=== PATIENT | female | born 1995 | race African-American/Black ===

== ENCOUNTER 2016-06-23 04:24 | Inpatient (IN) | payer OTHER ==
[2016-06-23 04:54] LABS: Urine Bilirubin Negative (Negative); Urine Glucose Negative (Negative); Urine Nitrite Negative (Negative)
[2016-06-23 05:03] LABS: Benzodiazepine Urine Screen None Detected (None Detect)
[2016-06-23 05:03] LABS: Hematocrit 34 % (35-47); Hemoglobin 11.1 g/dl (12.0-16.0); Mean Corpuscular HGB Conc 33 g/dl (31-36); Mean Corpuscular Hemoglobin 27 pg (27-31); Mean Corpuscular Volume 81 fL (80-97); Mean Platelet Volume 8 um3 (7.4-10.4); Red Blood Count 4.14 10^6/ul (4.0-5.4); Red Cell Distribution Width 14 % (10.5-15); White Blood Count 6.5 10^3/ul (3.5-10.8)
[2016-06-23 05:17] LABS: ALT 7 U/L (7-52); AST 15 U/L (13-39); Albumin 3.8 g/dL (3.2-5.2); Alkaline Phosphatase 32 U/L (34-104); Anion Gap 6 mmol/L (2-11); BUN/Creatinine Ratio 9.4 (8-20); Blood Urea Nitrogen 9 mg/dL (6-24); CO2 Carbon Dioxide 25 mmol/L (22-32); Chloride 104 mmol/L (101-111); EGFR African American 93.5 (>60); EGFR Non-African American 72.7 (>60); Globulin 3.4 g/dL (2-4); Glucose 118 mg/dL (70-100); Potassium 3.6 mmol/L (3.5-5.0); Sodium 135 mmol/L (133-145); Total Protein 7.2 g/dL (6.4-8.9)
[2016-06-23 05:25] LABS: Acetaminophen < 15 mcg/mL; Alcohol < 10 mg/dL (<10); Salicylate < 2.50 mg/dL (<30)
[2016-06-23 05:43] LABS: TSH (Thyroid Stimulating Horm) 2.79 mcIU/mL (0.34-5.60)
--- NOTE | 2016-06-23 05:46 | ED ---
devyn Whitaker Timothy, scribed for Bjorn Blank MD on 06/23/16 at 0451 . Psychiatric Complaint - HPI Summary HPI Summary: Jasmina Guzman is a 21 yo female presenting to [facility] as a 941 for MHE due to self-harm. She states she has been self-harming for the past month. She has passive SI. Her MHx includes depression. - History Of Current Complaint Time Seen by Provider: 06/23/16 04:32 Hx Obtained From: Patient Onset/Duration: Gradual Onset, Lasting Weeks, Still Present Timing: Constant Severity Initially: Moderate Severity Currently: Moderate Character: Depressed Related History: Positive For: Prior Psychiatric Issues - depression Has Suicidal: Reports: Thoughts - passive PMH/Surg Hx/FS Hx/Imm Hx Psychiatric History: Reports: Hx Depression Infectious Disease History: Denies: Traveled Outside the [place] in Last 30 Days - Family History Known Family History: Positive: Hypertension Negative: Cardiac Disease, Diabetes - Social History Occupation: Student Lives: Alone Hx Substance Use: No Substance Use Type: Reports: None Hx Tobacco Use: No Smoking Status (MU): Never Smoked Tobacco Review of Systems Constitutional: Negative Eyes: Negative ENT: Negative Cardiovascular: Negative Respiratory: Negative Gastrointestinal: Negative Genitourinary: Negative Musculoskeletal: Negative Skin: Negative Neurological: Negative Positive: Depressed All Other Systems Reviewed And Are Negative: Yes Physical Exam Triage Information Reviewed: Yes Vital Signs On Initial Exam: Initial Vitals Temp Pulse Resp BP Pulse Ox 98.0 F 68 15 126/77 100 06/23/16 04:49 06/23/16 04:49 06/23/16 04:49 06/23/16 04:49 06/23/16 04:49 Vital Signs Reviewed: Yes Appearance: Positive: Well-Appearing - anxious Skin: Positive: Warm Head/Face: Positive: Normal Head/Face Inspection Eyes: Positive: FREDDY ENT: Positive: Hearing grossly normal Neck: Positive: Supple Respiratory/Lung Sounds: Positive: Clear to Auscultation, Breath Sounds Present Cardiovascular: Positive: RRR Abdomen Description: Positive: Nontender, Soft Bowel Sounds: Positive: Present Musculoskeletal: Positive: Strength/ROM Intact Neurological: Positive: Sensory/Motor Intact Diagnostics - Vital Signs Vital Signs Temp Pulse Resp BP Pulse Ox 06/23/16 04:49 98.0 F 68 15 126/77 100 - Laboratory Lab Results: Lab Results 06/23/16 06/23/16 06/23/16 Range/Units 04:41 04:41 04:54 WBC 6.5 (3.5-10.8) 10^3/ul RBC 4.14 (4.0-5.4) 10^6/ul Hgb 11.1 L (12.0-16.0) g/dl Hct 34 L (35-47) % MCV 81 (80-97) fL MCH 27 (27-31) pg MCHC 33 (31-36) g/dl RDW 14 (10.5-15) % Plt Count 258 (150-450) 10^3/ul MPV 8 (7.4-10.4) um3 Neut % (Auto) 43.6 (38-83) % Lymph % (Auto) 43.3 (25-47) % [place] % (Auto) 8.0 (1-9) % Eos % (Auto) 4.1 (0-6) % Baso % (Auto) 1.0 (0-2) % Absolute Neuts (auto) 2.8 (1.5-7.7) 10^3/ul Absolute Lymphs (auto) 2.8 (1.0-4.8) 10^3/ul Absolute Monos (auto) 0.5 (0-0.8) 10^3/ul Absolute Eos (auto) 0.3 (0-0.6) 10^3/ul Absolute Basos (auto) 0.1 (0-0.2) 10^3/ul Absolute Nucleated RBC 0.01 10^3/ul Nucleated RBC % 0.2 Sodium (133-145) mmol/L Potassium (3.5-5.0) mmol/L Chloride (101-111) mmol/L Carbon Dioxide (22-32) mmol/L Anion Gap (2-11) mmol/L BUN (6-24) mg/dL Creatinine (0.51-0.95) mg/dL Est GFR ( Amer) (>60) Est GFR (Non-Af Amer) (>60) BUN/Creatinine Ratio (8-20) Glucose (70-100) mg/dL Calcium (8.6-10.3) mg/dL Total Bilirubin (0.2-1.0) mg/dL AST (13-39) U/L ALT (7-52) U/L Alkaline Phosphatase (34-104) U/L Total Protein (6.4-8.9) g/dL Albumin (3.2-5.2) g/dL Globulin (2-4) g/dL Albumin/Globulin Ratio (1-3) TSH (0.34-5.60) mcIU/mL Beta HCG, Quant mIU/mL Urine Color Yellow Urine Appearance Clear Urine pH 5.0 (5-9) Ur Specific [place] 1.013 (1.010-1.030) Urine Protein Negative (Negative) Urine Ketones Trace H (Negative) Urine Blood Negative (Negative) Urine Nitrate Negative (Negative) Urine Bilirubin Negative (Negative) Urine Urobilinogen Negative (Negative) Ur Leukocyte Esterase Negative (Negative) Urine Glucose Negative (Negative) Salicylates (<30) mg/dL Urine Opiates Screen None detected (None Detect) Acetaminophen mcg/mL Ur Barbiturates Screen None detected (None Detect) Ur Phencyclidine Scrn None detected (None Detect) Ur Amphetamines Screen None detected (None Detect) U Benzodiazepines Scrn None detected (None Detect) Urine Cocaine Screen None detected (None Detect) U Cannabinoids Screen None detected (None Detect) Serum Alcohol (<10) mg/dL 06/23/16 Range/Units 04:54 WBC (3.5-10.8) 10^3/ul RBC (4.0-5.4) 10^6/ul Hgb (12.0-16.0) g/dl Hct (35-47) % MCV (80-97) fL MCH (27-31) pg MCHC (31-36) g/dl RDW (10.5-15) % Plt Count (150-450) 10^3/ul MPV (7.4-10.4) um3 Neut % (Auto) (38-83) % Lymph % (Auto) (25-47) % [place] % (Auto) (1-9) % Eos % (Auto) (0-6) % Baso % (Auto) (0-2) % Absolute Neuts (auto) (1.5-7.7) 10^3/ul Absolute Lymphs (auto) (1.0-4.8) 10^3/ul Absolute Monos (auto) (0-0.8) 10^3/ul Absolute Eos (auto) (0-0.6) 10^3/ul Absolute Basos (auto) (0-0.2) 10^3/ul Absolute Nucleated RBC 10^3/ul Nucleated RBC % Sodium 135 (133-145) mmol/L Potassium 3.6 (3.5-5.0) mmol/L Chloride 104 (101-111) mmol/L Carbon Dioxide 25 (22-32) mmol/L Anion Gap 6 (2-11) mmol/L BUN 9 (6-24) mg/dL Creatinine 0.96 H (0.51-0.95) mg/dL Est GFR ( Amer) 93.5 (>60) Est GFR (Non-Af Amer) 72.7 (>60) BUN/Creatinine Ratio 9.4 (8-20) Glucose 118 H (70-100) mg/dL Calcium 9.0 (8.6-10.3) mg/dL Total Bilirubin 0.20 (0.2-1.0) mg/dL AST 15 (13-39) U/L ALT 7 (7-52) U/L Alkaline Phosphatase 32 L (34-104) U/L Total Protein 7.2 (6.4-8.9) g/dL Albumin 3.8 (3.2-5.2) g/dL Globulin 3.4 (2-4) g/dL Albumin/Globulin Ratio 1.1 (1-3) TSH 2.79 (0.34-5.60) mcIU/mL Beta HCG, Quant < 0.60 mIU/mL Urine Color Urine Appearance Urine pH (5-9) Ur Specific [place] (1.010-1.030) Urine Protein (Negative) Urine Ketones (Negative) Urine Blood (Negative) Urine Nitrate (Negative) Urine Bilirubin (Negative) Urine Urobilinogen (Negative) Ur Leukocyte Esterase (Negative) Urine Glucose (Negative) Salicylates < 2.50 (<30) mg/dL Urine Opiates Screen (None Detect) Acetaminophen < 15 mcg/mL Ur Barbiturates Screen (None Detect) Ur Phencyclidine Scrn (None Detect) Ur Amphetamines Screen (None Detect) U Benzodiazepines Scrn (None Detect) Urine Cocaine Screen (None Detect) U Cannabinoids Screen (None Detect) Serum Alcohol < 10 (<10) mg/dL Result Diagrams: 06/23/16 04:54 04/14/17 04:54 Lab Statement: Any lab studies that have been ordered have been reviewed, and results considered in the medical decision making process. Course/Dx - Course Assessment/Plan: Jasmina Guzman is a 21 yo female [facility] M[facility] due to self-harm. She is medically clear for MHUE at 0520. After completion of MHUE, Pt will be admitted to [facility] for further observation, evlauation, and treatment. - Differential Dx/Clinical Impression Provider Diagnosis: Self-harm, Passive suicidal ideations - Physician Notifications Instructed by Provider To: Admit As Inpatient Discharge - Discharge Plan Condition: Stable Disposition: ADMITTED TO [facility] Discharge Disposition Comment: admission for further observation, evaluation, and treatment The documentation as recorded by the devyn bowman Timothy accurately reflects the service I personally performed and the decisions made by me, Bjorn Blank MD.
[2016-06-23] MEDS ORDERED: Al Hydrox/Mg Hydrox/Simet LIQ* 30 ML UDC PO PRN (16:17)
[2016-06-23] MEDS ORDERED: hydrOXYzine HCL TAB* 50 MG PO PRN (16:18)
[2016-06-23] MEDS: Citalopram TAB* 20 MG PO SCH (18:12)
[2016-06-23] MEDS: Acetaminophen TAB* 325 MG PO PRN (18:52)
[2016-06-23] MEDS: SUMAtriptan TAB* 50 MG PO ONE ×2 (21:52→22:08)
--- NOTE | 2016-06-23 22:34 | HP ---
PSYCHIATRIC HISTORY AND PHYSICAL: DATE OF ADMISSION: 06/23/16 JUSTIFICATION FOR ADMISSION: The patient is in need of 24-hour supervision and treatment secondary to suicidal ideations endorsed within 72 hours of admission date. CHIEF COMPLAINT: "I am just disappointed, nothing is going right in my life." HISTORY OF PRESENT ILLNESS: The patient is a 21-year-old single - Ivorian female of [place] descent who is a college senior at [employer] who was brought in by the police after making suicidal statements to her boyfriend over Skype. The patient is set to graduate in July and has been trying for over a year to establish either an management internship as an actor or get into a Master's of T[employer] arts program in the field of acting. She has sent out several resumes and applications only to receive rejection letters time after time. She is disappointed in herself and feels like perhaps she chose the wrong program because she has had a dream of being an actress her entire life. The patient indicates that her family is not necessarily supportive. They are [place] immigrants living in [place], and she feels discouraged by their lack of support. She did start seeing a psychotherapist named Mimi at the [facility] at [place] over a month ago and she was set to have an intake with a psychiatrist for today but had been brought to the emergency room instead. I ask about symptoms and she does endorse difficulty falling asleep, anhedonia, guilt, lack of energy, poor concentration, lack of appetite, psychomotor retardation and thoughts of suicide. Apparently, the patient had superficially scratched herself on the left wrist but also had thoughts of overdosing on ibuprofen. As a safety plan, she states that she handed over a knife to a friend of hers and got rid of a large amount of over- the-counter ibuprofen that she typically uses for menstrual pain. Despite this, she continued to experience suicidal ideations which she expressed to her boyfriend , a man named Shen. Shen was reached in [place], [place], for collateral information and he corroborated the patient's story and felt that she would benefit from inpatient treatment. PAST PSYCHIATRIC HISTORY: The patient had a suicide attempt approximately 5 years ago when she overdosed on some allergy medications. She immediately told her family and was set down by her father and told that [place]ames[place] people do not chose suicide. She never received any treatment at that time. Approximately a month ago, she began seeing a therapist at [place] named Mimi Ribera, but she has not seen a psychiatrist. She has never been on psychiatric medication and has never received any psychiatric medications or hospitalizations. The patient denies any history of abuse or neglect growing up, but states that her family was emotionally unsupportive, rigid, and traditionalistic. She denies any significant history of head trauma. SUBSTANCE ABUSE HISTORY: She does drink socially but never to excess. She denies illicit substance abuse or use of tobacco product. MEDICAL HISTORY: Significant for migraine headaches. FAMILY HISTORY: Noncontributory. SOCIAL HISTORY: The patient was born in [place], [place] and then moved to [place], [place] when she was 1 years old. She is the second of 5 children and her parents are still an intact family residing in [place]. The patient graduated high school as an excellent student and came to [place] where she studies theater. She would like to get a Master's in fine arts or perhaps an management internship acting but has had difficulty being accepted into an appropriate program. 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 She is senior set to graduate in July. She is currently in a relationship with her boyfriend; however, he lives in [place] and so she is not currently sexually active. She denies any history of sexually transmitted diseases. She denies any history of service. She denies any history of legal problems. The patient self identifies as Latter-Day and feels that her luisa is a deterrent to completed suicide. REVIEW OF SYSTEMS: She denies double vision, although she is endorsing current headache. She denies sore throat, cough, chest pain, difficulty breathing, abdominal pain, nausea, vomiting, diarrhea or constipation. She denies difficulty ambulating, rashes, enlarged lymph nodes or fevers. She does feel that she has gained an unspecified amount of weight recently despite her lack of appetite. PHYSICAL EXAMINATION VITAL SIGNS: Blood pressure 126/77, heart rate 68, temperature 98.0 degrees Fahrenheit, respiratory rate 15 breaths per minute, oxygen saturation is 100% on room air. HEENT: Head is normocephalic, atraumatic. NECK: Supple. CHEST: Clear to auscultation bilaterally. ABDOMEN: Soft and nontender. MUSCULOSKELETAL: Full range of motion in all 4 extremities. NEUROLOGIC: She is grossly intact with no focal deficits. SKIN: Warm and dry. LABORATORY DATA: The patient reveals mild anemia with hemoglobin of 11.1 and hematocrit of 34. Creatinine is somewhat elevated at 0.96. Glucose is 118 which is high. Alk phos is low at 32. Urinalysis is within normal limits. Her urine drug screen is negative for all substances tested and her alcohol level is negative. MENTAL STATUS EXAM: The patient is an -Ivorian female who is clean, well groomed. She is wearing spectacles and what would appear to be a wig. She is calm, cooperative, although she shows some psychomotor retardation. Speech is slow and deliberate with good fluency. Mood is depressed with constricted affect. Thought process is linear and goal directed. Thought content is significant for her disappointment at not getting into an acting program. She is endorsing suicidal ideations with thoughts to either cut herself or overdose on medications. She denies homicidality. She denies auditory or visual hallucinations. Insight and judgment appears to be fair given her willingness to cooperate with treatment. Cognitively, she is awake and alert with what would appear to be an average intellect. DIAGNOSES: Prosper I: Major depressive disorder, single episode, severe without psychotic features. Prosper II: Deferred. Prosper III: Migraine headaches, mild anemia. Prosper IV: Moderate academic and occupational stressors. Prosper V: At this time is 35. IMPRESSION: The patient is a 21-year-old single -[place]ian female of [place] descent who is a senior at [employer] who was brought in by the police after endorsing suicidal ideations to her boyfriend over Skype. She meets criteria for major depressive illness and she is expressing an interest in antidepressant therapy. We do discuss the benefits and limitations of antidepressant treatment and she accepts the trial of citalopram. PLAN: The patient is admitted to the adult behavioral health unit where she is placed on q. 30 minute checks for her own safety. We will start a trial of citalopram 20 mg p.o. daily and she is encouraged to avail herself of all milieu activities including group and individual psychotherapies. Her followup would likely be at the [facility] on the grounds of [employer]. [id number]/[facility] #: [id number] [facility]ITAL[facility]
[2016-06-24] MEDS: Vitamin THERAPEUTIC TAB PO SCH (08:55)
[2016-06-24] MEDS: Citalopram TAB* 20 MG PO SCH (08:55)
[2016-06-24] MEDS ORDERED: Cetirizine* 10 MG TAB PO PRN (14:24)
--- NOTE | 2016-06-24 14:24 | PN ---
Subjective - Subjective Service Type: 37013 Hosp care 15 min low complexity Subjective: At this time, I visited with client who reports that she feels much better today as she was having a migraine headache yesterday. Reports that receipt of medication for same was effective in treating symptoms. She is reporting improved sleep and mood. States that her appetite was not as good today as it was yesterday. She also reports that her mother was considering driving up to see her (from [place]). She is also reporting that she is having some upper respiratory/seasonal allergy symptoms of stuffy/runny nose. She is currently denying suicidal ideation and is future oriented. Case discussed with Dr. Marie. Objective - Appearance Dysmorphic Features: No Hygiene: Normal Grooming: Well Kept - Behavior Psychomotor Activities: Normal Exhibits Abnormal Movement: No - Attitude and Relatedness Attitude and Relatedness: Cooperative Eye Contact: Good - Speech Quality: Unpressured - Mood Patient's Decription of Mood: "Okay" - Affect Observed Affect: Non-labile Affect Consistent with: Euthymia - Thought Process Patient's Thought Process: Coherent Thought Content: No Passive Wish, No Suicidal Planning, No Homicidal Ideation, No Paranoid Ideation - Sensorium Type of Hallucinations: Visual: No, Auditory: No, Command: No - Level of Consciousness Orientation: No Intact, No Orientated to Time, No Orientated to Place, No Orientated to Person - Impulse Control Impulse Control: Intact - Insight and Judgement Insight and Judgement: Fair - Group Participation Particating in Group Activities: Yes - Medication Management Medication Management Adherence: Yes Plan - Plan Treatment Plan: Name: FADUMO FUNES Birthdate: 1995 [id number] Medications: Current Medications Acetaminophen (Tylenol Tab*) 650 mg PO Q4H PRN PRN Reason: for pain; or Temp >101 F Last Admin: 06/23/16 18:52 Dose: 650 mg Al Hydrox/Mg Hydrox/Simethicone (Maalox Plus*) 30 ml PO Q4H PRN PRN Reason: INDIGESTION Citalopram Hydrobromide (Celexa Tab*) 20 mg PO DAILY PEE Last Admin: 06/24/16 08:55 Dose: 20 mg Hydroxyzine HCl (Atarax Tab*) 50 mg PO Q6H PRN PRN Reason: AGITATION/ANXIETY/INSOMNIA Multivitamins (Theragran Tab*) 1 tab PO DAILY PEE Last Admin: 06/24/16 08:55 Dose: 1 tab
[2016-06-24] MEDS ORDERED: SUMAtriptan TAB* 50 MG PO PRN ×2 (19:19→19:20)
[2016-06-25] MEDS: Vitamin THERAPEUTIC TAB PO SCH (08:47)
[2016-06-25] MEDS: Citalopram TAB* 20 MG PO SCH (08:47)
[2016-06-25] MEDS: Acetaminophen TAB* 325 MG PO PRN (20:54)
[2016-06-26] MEDS: Ibuprofen TAB* 400 MG PO PRN ×4 (09:07→22:20)
[2016-06-26] MEDS: Vitamin THERAPEUTIC TAB PO SCH (09:07)
[2016-06-26] MEDS: Citalopram TAB* 20 MG PO SCH (09:07)
--- NOTE | 2016-06-26 12:14 | PN ---
[facility]: Group Therapy Note - Service Type Service Type: 22208 Group Psychotherapy - Cognitive Behavioral Group Therapy ( CBT):Patient was attentive and participatory in CBT programming this morning, and remained in good behavioral control. Patient expressed positive insights regarding relevant treatment interventions and goals.
[2016-06-26] MEDS ORDERED: ETHINYL ESTRADIOL PO SCH (14:00)
[2016-06-26] MEDS ORDERED: NORGESTIMATE PO SCH (14:00)
--- NOTE | 2016-06-26 16:20 | PN ---
Subjective - Subjective Service Type: 43423 Hosp care 25 min moderate complexity Subjective: Fadumo reports remission of SI, but she is not confident it will not recur. She would like to discharge soon. She agrees to collateral being gathered from her therapist at [facility] and from her mother. She reports being disappointed at rejections of applications for graduate work in [employer] and other programs and academic pressure here as the main precipitants to her SI. Reports she is happy with good effect of Imitrex against migraine. She reports that she feels the Theater program at [facility] is racist and unsupportive. Objective - Appearance Appearance: Well Developed/Nourished Dysmorphic Features: No Hygiene: Normal Grooming: Well Kept - Behavior Psychomotor Activities: Normal Exhibits Abnormal Movement: No - Attitude and Relatedness Attitude and Relatedness: Cooperative Eye Contact: Good - Speech Quality: Unpressured Latencies: Normal Quantity: Appropriate - Mood Patient's Decription of Mood: "Okay" - Affect Observed Affect: Fair Affect Consistent with: Euthymia - Thought Process Patient's Thought Process: Coherent, Goal Directed Thought Content: No Passive Wish, No Suicidal Planning, No Homicidal Ideation, No Paranoid Ideation - Sensorium Experiencing Hallucinations: No, Sensorium is Clear Type of Hallucinations: Visual: No, Auditory: No, Command: No - Level of Consciousness Level of Consciousness: Alert Orientation: Yes Intact, Yes Orientated to Time, Yes Orientated to Place, Yes Orientated to Person - Impulse Control Impulse Control: Intact - Insight and Judgement Insight and Judgement: Fair - Group Participation Particating in Group Activities: Yes - Medication Management Medication Management Adherence: Yes Assessment - Assessment Merits Inpatient Hospitalization: [facility], For Discharge Planning Inpatient DSM-IV Dx: Major Depressive Disorder, single episode, severe, without psychotic features Clinical Impression: Fadumo Guzman is a 21 year-old woman admitted for suicidal ideation with plans that she took steps to eliminate the means to carry them out (gave scissors, ibuprofen to friends). She clarifies to me that she has never attempted suicide , that 4 or 5 years ago she contemplated suicide with OD allergy meds, but never took the meds. She has been engaged in the therapeutic program here and is hopeful for discharge tomorrow. She agrees to allow us to gather collateral. She agrees to complete an MMPI. Plan - Plan Treatment Plan: Name: FADUMO GUZMAN Birthdate: 1995 [id number] Continue Celexa 20 mg daily. Monitor MS and safety. Gather collateral. Consider for discharge tomorrow if collateral reports and MMPI are supportive. Medications: Current Medications Acetaminophen (Tylenol Tab*) 650 mg PO Q4H PRN PRN Reason: for pain; or Temp >101 F Last Admin: 06/25/16 20:54 Dose: 650 mg Al Hydrox/Mg Hydrox/Simethicone (Maalox Plus*) 30 ml PO Q4H PRN PRN Reason: INDIGESTION Cetirizine HCl (Zyrtec*) 10 mg PO DAILY PRN PRN Reason: allegy symptoms Citalopram Hydrobromide (Celexa Tab*) 20 mg PO DAILY [facility] Last Admin: 06/26/16 09:07 Dose: 20 mg Hydroxyzine HCl (Atarax Tab*) 50 mg PO Q6H PRN PRN Reason: AGITATION/ANXIETY/INSOMNIA Ibuprofen (Motrin Tab*) 400 mg PO Q4H PRN PRN Reason: PAIN Last Admin: 06/26/16 12:45 Dose: 400 mg Multivitamins (Theragran Tab*) 1 tab PO DAILY [facility] Last Admin: 06/26/16 09:07 Dose: 1 tab Pto Nf Med *Ocp Norgestimage/Ethinyl Estradiol [Trinessa Lo] 1 admin PO 1400 [facility] Last Admin: 06/26/16 14:21 Dose: 1 admin Sumatriptan Succinate (Imitrex Tab*) 50 mg PO DAILY PRN PRN Reason: MIGRAINE HEADACHE Last Admin: 06/24/16 20:16 Dose: 50 mg Sumatriptan Succinate (Imitrex Tab*) 50 mg PO .REPEAT DOSE PRN PRN Reason: REPEAT DOSE AFTER 2 HR - Discharge Plan Discharge Plan: Outpatient Follow Up Outpatient Program: Counseling/Psych Services at [facility]
[2016-06-27] MEDS: Citalopram TAB* 20 MG PO SCH (08:09)
[2016-06-27] MEDS: Vitamin THERAPEUTIC TAB PO SCH (08:09)
[2016-06-27] MEDS: Ibuprofen TAB* 400 MG PO PRN ×2 (08:09→12:51)
[2016-06-27 08:30] VITALS: BP 133/73
--- NOTE | 2016-06-27 11:10 | DS ---
Subjective - Subjective Service Types: [id number] Hosp [facility] Day Mgmt simple under 30 min Discharge Date: 06/27/16 Subjective: Flores reports feeling safe and ready for discharge. She does not feel she would benefit from continued hospitalization, and is eager to return to school. She reports sustained remission of SI since prior to admission. She has no physical complaints aside from menstrual cramps at a familiar level of discomfort. maintenance worker municipal Ms De La [place]re spoke with Flores's mother, who reports that she has no concerns for her daughter's safety at discharge today. She reports that Flores sounds much better to her over the phone compared with when she spoke with her earlier in this admission. She also reports taking multiple steps to support Flores, including finding her providers in [facility] for after graduation, and coming to [place] in a few days to support her here. Objective - Appearance Appearance: Healthy Appearing Dysmorphic Features: No Hygiene: Normal Grooming: Well Kept - Behavior Psychomotor Activities: Normal Exhibits Abnormal Movement: No - Attitude and Relatedness Attitude and Relatedness: Well Related Eye Contact: Good - Speech Quality: Unpressured Latencies: Normal Quantity: Appropriate - Mood Patient's Decription of Mood: "Much better." - Affect Observed Affect: Good Affect Consistent with: Euthymia - smiling, joking - Thought Process Patient's Thought Process: Coherent, Goal Directed Thought Content: No Passive Wish, No Suicidal Planning, No Homicidal Ideation, No Paranoid Ideation - Sensorium Experiencing Hallucinations: No, Sensorium is Clear Type of Hallucinations: Visual: No, Auditory: No, Command: No - Level of Consciousness Level of Consciousness: Alert Orientation: Yes Intact, Yes Orientated to Time, Yes Orientated to Place, Yes Orientated to Person - Impulse Control Impulse Control: Intact - Insight and Judgement Insight and Judgement: Fair - Group Participation Particating in Group Activities: Yes - Medication Management Medication Management Adherence: Yes Treatment Course & Assessment Clinical Course & Impression: [facility] care day 4, 06.26.16: Flores Guzman is a 21 year-old woman admitted for suicidal ideation with plans for which she took steps to eliminate the means to carry them out (gave sharps and ibuprofen to friends). She clarifies to me that she has never attempted suicide, that 4 or 5 years ago she contemplated suicide with OD allergy meds, but never took the meds. She has been engaged in the therapeutic program here and is hopeful for discharge tomorrow. She agrees to allow us to gather collateral. She agrees to complete an MMPI. Day 5, 06.27.16: MMPI found no concerning psychopathology. Flores reports sustained remission of suicidal ideation. She was proactively self-protective prior to admission in asking friends to take from her the means she had contemplated for attempting suicide. She has been well-engaged in group programming here. She has been a calm presence on the milieu. She has taken a collaborative stance to care. She is bright and future-oriented. She reports continued commitments to seeking safety again in contacting friends if she has recurrent SI. She agrees to continued care [facility]. As all reports and signs indicate full sustained remission of SI and improved mood with good coping skills in place, Flores is cleared for discharge today. She is assessed as at no acutely increased risk of harm to self or others and capable of adequate self-care to avoid harm. She will continue Celexa/Lexapro against depressive symptoms. She voiced understanding and acceptance of the FDA black box warning of increased incidence of suicidality in patients her age taking antidepressant medications, and chose to continue taking the medication for expected benefits outweighing risks. Merits Inpatient Hospitalization: No Clear for Discharge: Adequate Clinical Respons, Acceptable Safety Profile, Low Utility of Inpt Care Inpatient DSM-IV Dx: Major Depressive Disorder, single episode, severe, without psychotic features - [place] MR and Personality Disorder: Deferred - [place] P[place] III Medical Illness: Migraines - [place] IV Stressors: Academics, difficulty transitioning with graduation given multiple rejections of applications for post-baccalaureate programs. Family: Supportive now she says, had been dismissive of treatment for mental illness Primary Support Group: Boyfriend, mother, friends at school - [place] V PMI-Iwsjty-Tttht: 70 Estimate of Highest-Past Year: 75 Discharge Planning - Discharge Planning Discharge Plan: Outpatient Follow Up Outpatient Program: [facility] at [place] Recommendations for Continuing Care: Medication Management, Psychotherapy Medications: Replace: (Citalopram Hydrobromide (Celexa Tab*) 20 mg PO DAILY PEE Last Admin: 06/27/16 08:09 Dose: 20 mg) with: Lexapro 10 mg po daily, #30, 0 refills. Ibuprofen (Motrin Tab*) 400 mg PO Q4H PRN PRN Reason: PAIN Last Admin: 06/27/16 08:09 Dose: 400 mg : will continue to use OTC Pto Nf Med *Ocp Norgestimage/Ethinyl Estradiol [Trinessa Lo] 1 admin PO 1400 PEE Last Admin: 06/26/16 14:21 Dose: 1 admin : will continue on outpatient provider prescription Sumatriptan Succinate (Imitrex Tab*) 50 mg PO DAILY PRN PRN Reason: MIGRAINE HEADACHE Last Admin: 06/24/16 20:16 Dose: 50 mg Sumatriptan Succinate (Imitrex Tab*) 50 mg PO .REPEAT DOSE PRN PRN Reason: REPEAT DOSE AFTER 2 HR : #5, 0 refills Discharge Planning: Prescriptions provided for discharge [x] Yes [] No Follow up care details as per social work arrangements. Patient response to discharge plan: [x] eager for discharge [x] agreeable with discharge plan [] ambivalent about discharge [] disagrees with discharge today
--- NOTE | 2016-06-27 18:53 | CONS ---
PSYCHOLOGICAL REPORT: DATE OF CONSULT: 06/27/16 REASON FOR REFERRAL: Flores was referred for personality testing secondary to concerns regarding depression, possible lethality, and possible characterological vulnerabilities, often consistent with cutting behaviors. TEST ADMINISTERED: Flores completed the [place] Multiphasic Personality Inventory - 2 (MMPI-2). She was given feedback regarding test results in individual conversation. 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 Flores reports an acute sense of despair in having all these rejections occur in close proximity and is unsure of how to proceed with her career interest after graduation. She also cites multiple academic pressures in completing projects in timely fashion, only having 45 days before graduating. Flores reports good social adjustment to [place] and cites supportive family including a boyfriend, who lives in [place]. She also describes being close with a sister, who is currently in a graduate program in [place]. She describes frequent contacts with family and friends while here and has reliably denied experiencing further thoughts of engaging in suicidal behaviors or self- harm since her admission. She describes improvement while here and is anxious to return to campus. Flores presents with good affect and is bright and energetic in group contacts. She has consistently attended programming while here, and has been compliant with all unit routines including participation in cognitive behavioral psychotherapy groups. She presents as bright and articulate and interacts actively with peers. She anticipates returning to her little traverse, [place], [place], after completion to live with family until she is able to better complete the postgraduate plans. TEST RESULTS: Flores provides a valid protocol in this administration of the MMPI- 2 only having a very mild elevation on the FB scale (T = 65). As such, this is thought to be a valid protocol that is by and large subclinical. Her only clinical elevation occurs on the paranoia scale (T = 67), while having a significant but subclinical score on her depression scale (T = 60). However, she scores in the very low range on the hypomania scale (T = 35). Persons scoring in this range are often described as depressed even if their depression scale is not clinically elevated, which seems to be the case here. Persons who elevate the paranoia scale to such a minor degree are characterized as being extremely sensitive to perceptions of criticism, which impresses as a very close match to her presenting difficulties of recently been rejected on 5 occasions by program she was hopeful of admission to. IMPRESSIONS AND RECOMMENDATIONS: Flores appears to have experienced reactive depression. However, this was replete with suicidal features, although she did self-preserve in restricting access to ingestion of pills, which was her primary plan of engaging in suicidal behavior. This is a positive prognostic indicator as she was effectively able to self-preserve without completing an attempt. She describes regaining her sense of characteristic perspective on her problems while being here and quite reliably denies ongoing thoughts of self -injury. She impresses as a good candidate to benefit from-insight oriented psychotherapy, as she is obviously very bright and presently motivated to engage in treatment. She feels she has recovered from the acute of sense of rejection by these various program and even describes how this has been a positive experience for her in that she learned that she did not wish to live in [facility]. She expresses a sense of relief about being able to return to her little traverse [place], to make further plans. DIAGNOSTIC IMPRESSION: Supports major depressive disorder without psychosis. Neither her presentation nor testing supports concerns regarding any characterological vulnerabilities in regards to personality disorder problems. [id number] #: [id number] SINAN
== END 2016-06-27 13:15 | disposition home or self-care (01) | DRG 885 ==
LOC: ED 04:24 → BSU 10:35
PROVIDERS: ADMIT Psychiatry & Neurology Psychiatry; ATTEND Psychiatry & Neurology Psychiatry
PROC: GZHZZZZ Group Psychotherapy (ICD-10-PCS; principal; 2016-06-27)
PROC: GZ58ZZZ Individual Psychotherapy, Cognitive-Behavioral (ICD-10-PCS; 2016-06-27)
DX: F32.2 Major depressive disorder, single episode, severe without psychotic features (principal); R45.851 Suicidal ideations; G43.909 Migraine, unspecified, not intractable, without status migrainosus; D64.9 Anemia, unspecified; Z55.8 Other problems related to education and literacy; Z82.49 Family history of ischemic heart disease and other diseases of the circulatory system; Z56.9 Unspecified problems related to employment
CPT/HCPCS: 36415; 80053; 80307; 80320; 80329; 81003; 84443; 84702; 85025; 90853; 96102; 99222; 99231; 99232; 99238; A9270-GY; G0480